=== PATIENT | male | born 2000 | race Two or more races ===

== ENCOUNTER 2021-10-05 17:04 | Emergency (ER) | payer MEDICAID ==
[~2021-10-05] VITALS: Ht 182.9 cm; Wt 91.0 kg
[2021-10-05 17:09] VITALS: BP 138/72
[2021-10-05] MEDS ORDERED: OFLO5DRO4 EACH EAR (17:18)
== END 2021-10-05 17:26 | disposition home or self-care (01) ==
LOC: ER 17:04
DX: H60.91 Unspecified otitis externa, right ear (principal); H72.91 Unspecified perforation of tympanic membrane, right ear
CPT/HCPCS: 99283